=== PATIENT | male | born 1935 | race Caucasian/White ===

== ENCOUNTER 2018-03-30 09:28 | Emergency (ER) | payer OTHER ==
[~2018-03-30] VITALS: Ht 162.6 cm; Wt 56.2 kg
[~2018-03-30 09:28] MED LIST: FENOFIBRATE145 MG; LISINOPRIL10 MG PO; MEDROLPACK PO; TESSALON PERLE100 MG PO; TUSSI PRES-B L120 M1 PO; XANAX XR0.5 MG
== END 2018-03-30 11:05 | disposition home or self-care (01) ==
LOC: ER 09:28
DX: R21 Rash and other nonspecific skin eruption (principal); T78.49XA Other allergy, initial encounter; X58.XXXA Exposure to other specified factors, initial encounter

== ENCOUNTER → 2019-03-04 | Emergency (ER) | payer OTHER ==
[~2019-03-04] VITALS: Ht 162.6 cm; Wt 55.8 kg
[~2019-03-04] MED LIST changes: +DUI500; +INTESTINEX680 M1 PO; +LEVAQUIN750 MG PO; +PEPCID AC20 MG PO
== END | disposition home or self-care (01) ==
LOC: ER 11:00
DX: L02.414 Cutaneous abscess of left upper limb (principal)